=== PATIENT | male | born 1980 | race Caucasian/White ===

== ENCOUNTER → 2017-08-04 | Emergency (ER) | payer OTHER ==
[~2017-08-04] VITALS: Ht 175.3 cm; Wt 95.3 kg
[~2017-08-04] MED LIST: LOSARTAN POTASS50 MG
== END | disposition home or self-care (01) ==
LOC: OB/ER 15:37 → ER 15:50 → OB/ER 15:50
DX: J11.1 Influenza due to unidentified influenza virus with other respiratory manifestations (principal); B34.9 Viral infection, unspecified

== ENCOUNTER 2021-01-29 20:37 | Emergency (ER) | payer OTHER ==
[~2021-01-29] VITALS: Ht 175.3 cm; Wt 97.5 kg
[2021-01-29] MEDS ORDERED: ULTRAM50 MG PO (22:50)
== END 2021-01-29 22:57 | disposition home or self-care (01) ==
LOC: ER 20:37
DX: R10.9 Unspecified abdominal pain (principal); Z88.8 Allergy status to other drugs, medicaments and biological substances

== ENCOUNTER 2021-01-31 03:05 | Emergency (ER) | payer OTHER ==
[~2021-01-31] VITALS: Ht 175.3 cm; Wt 97.5 kg
[~2021-01-31 03:05] MED LIST changes: +ULTRAM50 MG PO
[2021-01-31] MEDS ORDERED: CARAFATE1 GM PO (05:32)
[2021-01-31] MEDS ORDERED: PROTONIX20 MG PO (05:32)
[2021-01-31] MEDS ORDERED: PEPCID20 MG PO (05:32)
== END 2021-01-31 05:54 | disposition home or self-care (01) ==
LOC: ER 03:05
DX: R10.9 Unspecified abdominal pain (principal)